=== PATIENT | female | born 1995 | race Caucasian/White ===

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

== ENCOUNTER 2017-01-31 20:47 | Emergency (ER) | payer OTHER ==
[~2017-01-31] VITALS: Ht 170.2 cm; Wt 90.9 kg
[~2017-01-31 20:47] MED LIST changes: +BACT800T5 PO; +ROZE8TAB19 PO; -ROZE8TAB8 PO; +VIST25CA PO
[2017-01-31 20:58] VITALS: BP 147/76; PULSE 73; RESP 16; TEMP 98.1; O2SAT 100
[2017-01-31 23:35] VITALS: BP 138/72; PULSE 68; RESP 16; O2SAT 99
[2017-01-31 23:56] LABS: BLOOD, URINE NEG (NEG); GLUCOSE,URINE NEG (NEG); KETONE, URINE TRACE mg/dL (NEG); NITRITE,URINE NEG (NEG)
[2017-02-01] LABS: URINE COLOR YELLOW (YELLW/STRAW)
[2017-02-01 00:01] LABS: BACTERIA, URINE MOD /hpf; COMMENT (UR) CULTURE INDICATED; CULTURE IF INDICATED CULTURE INDICATED; RBC, URINE 0-2 /hpf (0-3); SQUAMOUS EPITHELIAL CELL URINE > 8 /hpf (0-5)
[2017-02-01] MEDS ORDERED: MACR100C2 PO (00:26)
--- NOTE | 2017-02-01 00:29 | PD ---
HPI Chief Complaint: Dizziness Time Seen by Provider: 00:23 Travel History International Travel<30 days: No Contact w/Intl Traveler<30days: No Traveled to known affect area: No History of Present Illness HPI 21 year-old female presents for dizziness dysuria frequency urgency and nausea. Patient has had subjective fever no chills. Patient's had mild sore throat but none at this time. Patient denies sinus pressure drainage. Nonproductive cough. Patient has had urinary frequency urgency dysuria and no hematuria. Patient denies . Patient is on control pills and last period was normal for her. Patient does not smoke cigarettes. No lower extremity pain or swelling. Pain with urination as 2-5/10 in intensity. Patient denies any vaginal discharge or abnormal vaginal bleeding. Patient's had no injury or fall. PFSH Past Medical History Narrative Medical Anxiety depression hypothyroidism no surgery; nursing notes reviewed Anxiety: Yes Depression: Yes Diminished Hearing: No Insomnia: Yes Respiratory: Yes (FREQUENT SINUS INFECTIONS) Integumentary: Yes (ACNE) Immunizations Current: Yes Thyroid Disease: Yes ?: Not : 0 Social History Alcohol Use: No Tobacco Use: No Substance Use: No Allergies-Medications (Allergen,Severity, Reaction): Coded Allergies: amoxicillin (Unverified Allergy, Severe, RASH, 01/31/17) azithromycin (Unverified Allergy, Severe, RASH, 01/31/17) Reported Meds & Prescriptions Reported Meds & Active Scripts Active Macrobid (Nitrofurantoin Monoh/Nitrofur Macro) 100 Mg Cap 100 Mg PO BID 10 Days Reported Xanax (Alprazolam) 1 Mg Tab 1 Mg PO Q8H PRN Valtrex (Valacyclovir HCl) 1 Gm Tab 2,000 Mg PO DAILY Rozerem (Ramelteon) 8 Mg Tab 8 Mg PO DAILY Levothyroxine (Levothyroxine Sodium) 25 Mcg Tab 25 Mcg PO DAILY Spironolactone 50 Mg Tab 50 Mg PO DAILY Ortho Tri-Cyclen (Norgestimate-Ethinyl Estradiol) 0.18/0.215/0.25 mg-35 Mcg Tab 1 Tab PO DAILY Belviq (Lorcaserin) 10 Mg Tab 10 Mg PO BID Doxycycline Hyclate 50 Mg Cap 50 Mg PO DAILY Tylenol-Codeine #3 (Acetaminophen-Codeine) 300-30 mg Tab 1-2 Tab PO Q6H PRN Ambien (Zolpidem Tartrate) 10 Mg Tab 10 Mg PO HS PRN Review of Systems Except as stated in HPI: all other systems reviewed are Neg General / Constitutional: No: Fever HENT: No: Congestion Cardiovascular: No: Chest Pain or Discomfort Respiratory: No: Shortness of Breath Gastrointestinal: No: Abdominal Pain Genitourinary: Positive: Urgency, Frequency, Dysuria, No: Flank Pain Musculoskeletal: No: Myalgias, Arthralgias Skin: No Rash Neurologic: No: Weakness, Dizziness, Syncope, Focal Abnormalities, Coordination Problem Psychiatric: No: Anxiety Hematologic/Lymphatic: No: Lymph Node Enlargement Physical Exam Narrative GENERAL: Well-developed well-nourished female in no acute distress no respiratory distress SKIN: Warm and dry. HEAD: Normocephalic. EYES: No scleral icterus. No injection or drainage. NECK: Supple, trachea midline. No JVD or lymphadenopathy. CARDIOVASCULAR: Regular rate and rhythm without murmurs, gallops, or rubs. RESPIRATORY: Breath sounds equal bilaterally. No accessory muscle use. GASTROINTESTINAL: Abdomen soft, non-tender, nondistended. MUSCULOSKELETAL: No cyanosis, or edema. BACK: Nontender without obvious deformity. No CVA tenderness. Data Data Last Documented VS Vital Signs Date Time Temp Pulse Resp B/P (MAP) Pulse Ox O2 Delivery O2 Flow Rate FiO2 02/01/17 00:41 84 16 122/77 (92) 99 01/31/17 23:35 Room Air 01/31/17 20:58 98.1 Orders Orders Ed Urine Pregnancytest Poc (01/31/17 23:48) Urinalysis - C+S If Indicated (01/31/17 23:48) Urine Culture (01/31/17 23:50) Ed Discharge Order (02/01/17 00:23) Nitrofurantoin Monohyd Macrocr (Macrobid (02/01/17 00:30) Labs Laboratory Tests Test 01/31/17 23:50 Urine Color YELLOW Urine Turbidity CLOUDY Urine pH 6.0 Urine Specific [place] 1.025 Urine Protein TRACE mg/dL Urine Glucose (UA) NEG mg/dL Urine Ketones TRACE mg/dL Urine Occult Blood NEG Urine Nitrite NEG Urine Bilirubin NEG Urine Leukocyte Esterase SMALL Urine RBC 0-2 /hpf Urine WBC 9-14 /hpf Urine Squamous Epithelial Cells > 8 /hpf Urine Bacteria MOD /hpf Urine Yeast with Hyphae FEW Urine Yeast (Budding) FEW Microscopic Urinalysis Comment CULTURE INDICATED MDM Medical Decision Making Medical Screen Exam Complete: Yes Emergency Medical Condition: Yes Medical Record Reviewed: Yes Interpretation(s) poc hcg:negative ua: bacteria wbc's leuk est; cx indicated Differential Diagnosis uti, , viral syndrome Narrative Course urine specimen collected UA abnormal --macrobid administered --patient is stable for outpatient management Patient requests work excuse. Diagnosis Primary Impression: UTI (urinary tract infection) Referrals: Primary Care Physician 2 days Patient Instructions: General Instructions Med/Other Pt SpecificInfo: Prescription(s) given Scripts Nitrofurantoin Monohydrate Macrocrystals (Macrobid) 100 Mg Cap 100 MG PO BID for Infection for 10 Days, #20 CAP 0 Refills Prov: Tanna Hernandez MD 02/01/17 Disposition: 01 DISCHARGE HOME Condition: Stable Tanna Hernandez MD Feb 01, 2017 00:29
[2017-02-01] MEDS ORDERED: NITROFURANTOIN MONOHYD MACROCR 100 MG CAP PO ONE (00:30)
[2017-02-01 00:41] VITALS: BP 122/77
== END 2017-02-01 00:42 | disposition home or self-care (01) ==
LOC: PHED 20:47
DX: N39.0 Urinary tract infection, site not specified (principal); R11.0 Nausea; R50.9 Fever, unspecified; R07.0 Pain in throat; R05 Cough; E03.9 Hypothyroidism, unspecified; Z86.59 Personal history of other mental and behavioral disorders; Z87.2 Personal history of diseases of the skin and subcutaneous tissue
CPT/HCPCS: 81001; 84703; 87086; 99283

== ENCOUNTER 2017-04-14 19:53 | Emergency (ER) | payer OTHER ==
[~2017-04-14 19:53] MED LIST changes: -BACT800T5 PO; +MACR100C2 PO; -VIST25CA PO
[2017-04-14 20:25] VITALS: BP 159/89; PULSE 77; RESP 20; TEMP 97.8; O2SAT 98
[2017-04-14 20:48] LABS: BILIRUBIN, URINE NEG (NEG); BLOOD, URINE NEG (NEG); GLUCOSE,URINE NEG (NEG); KETONE, URINE TRACE mg/dL (NEG); NITRITE,URINE NEG (NEG); URINE LEUKOCYTE ESTERASE TRACE (NEG)
[2017-04-14 21:11] LABS: SQUAMOUS EPITHELIAL CELL URINE 0-5 /hpf (0-5); URINE COLOR YELLOW (YELLW/STRAW)
[2017-04-14] MEDS ORDERED: DIPH25CA PO (22:12)
[2017-04-14] MEDS ORDERED: ADVI200T17 PO (22:12)
[2017-04-14] MEDS ORDERED: BIOTCAP PO (22:12)
--- NOTE | 2017-04-14 22:22 | PD ---
HPI Chief Complaint: General Weakness Time Seen by Provider: 22:11 Travel History International Travel<30 days: No Contact w/Intl Traveler<30days: No Traveled to known affect area: No History of Present Illness HPI 21yo F presents to the ED with c/o generalized fatigue and dizziness. Said she had blood work by PMD 4-5 days ago and her wbc count was high and was told to come to the ED to see if she is anemic. Denies any fever, cough, chest pain, sob, n/v, abdominal pain, focal weakness or numbness. PFSH Past Medical History Anxiety: Yes Depression: Yes Diminished Hearing: No Insomnia: Yes Respiratory: Yes (FREQUENT SINUS INFECTIONS) Integumentary: Yes (ACNE) Immunizations Current: Yes Thyroid Disease: Yes Tetanus Vaccination: Unknown ?: Not LMP: 2 DAYS AGO : 0 Past Surgical History Surgical History: No Previous Surgery Social History Alcohol Use: No Tobacco Use: No Substance Use: No Allergies-Medications (Allergen,Severity, Reaction): Coded Allergies: amoxicillin (Unverified Allergy, Severe, RASH, 01/31/17) azithromycin (Unverified Allergy, Severe, RASH, 01/31/17) Reported Meds & Prescriptions Reported Meds & Active Scripts Active Reported Diphenhydramine (Diphenhydramine HCl) 25 Mg Cap 150 Mg PO HS PRN Advil Pm (Ibuprofen-Diphenhydramine) 200-38 Mg Tab 1 Tab PO HS PRN Biotin 5 Mg Cap 5 Mg PO DAILY Xanax (Alprazolam) 1 Mg Tab 1 Mg PO Q8H PRN Valtrex (Valacyclovir HCl) 1 Gm Tab 2,000 Mg PO DAILY Rozerem (Ramelteon) 8 Mg Tab 8 Mg PO DAILY Levothyroxine (Levothyroxine Sodium) 25 Mcg Tab 25 Mcg PO DAILY Spironolactone 50 Mg Tab 50 Mg PO DAILY Ortho Tri-Cyclen (Norgestimate-Ethinyl Estradiol) 0.18/0.215/0.25 mg-35 Mcg Tab 1 Tab PO DAILY Belviq (Lorcaserin) 10 Mg Tab 10 Mg PO BID Doxycycline Hyclate 50 Mg Cap 50 Mg PO DAILY Ambien (Zolpidem Tartrate) 10 Mg Tab 10 Mg PO HS PRN Review of Systems Except as stated in HPI: all other systems reviewed are Neg Physical Exam Narrative GENERAL: 21yo F not in distress. SKIN: Focused skin assessment warm/dry. HEAD: Atraumatic. Normocephalic. EYES: Pupils equal and round at 4mm bilaterally. EOMI. ENT: No nasal bleeding or discharge. Mucous membranes pink and moist. NECK: Trachea midline. No JVD. CARDIOVASCULAR: Regular rate and rhythm. No murmur appreciated. RESPIRATORY: No accessory muscle use. Clear to auscultation. Breath sounds equal bilaterally. GASTROINTESTINAL: Abdomen soft, non-tender, nondistended. RECTAL: Refused. MUSCULOSKELETAL: No obvious deformities. No clubbing. No cyanosis. No edema. NEUROLOGICAL: Awake and alert. No obvious cranial nerve deficits. Motor grossly within normal limits. Normal speech. Data Data Last Documented VS Vital Signs Date Time Temp Pulse Resp B/P (MAP) Pulse Ox O2 Delivery O2 Flow Rate FiO2 04/14/17 22:13 74 18 98 04/14/17 20:25 97.8 159/89 (112) Orders Orders Urinalysis - C+S If Indicated (04/14/17 20:29) Ed Urine Pregnancytest Poc (04/14/17 20:29) Complete Blood Count With Diff (04/14/17 22:19) Basic Metabolic Panel (Bmp) (04/14/17 22:19) Thyroid Stimulating Hormone (04/14/17 22:19) Magnesium (Mg) (04/14/17 22:19) Electrocardiogram (04/14/17 ) Orthostatic Blood Pressure (04/14/17 22:22) Ed Discharge Order (04/14/17 23:54) Labs Laboratory Tests Test 04/14/17 20:40 04/14/17 22:40 Urine Color YELLOW Urine Turbidity CLEAR Urine pH 6.0 Urine Specific [place] 1.032 Urine Protein TRACE mg/dL Urine Glucose (UA) NEG mg/dL Urine Ketones TRACE mg/dL Urine Occult Blood NEG Urine Nitrite NEG Urine Bilirubin NEG Urine Leukocyte Esterase TRACE Urine WBC 3-5 /hpf Urine Squamous Epithelial Cells 0-5 /hpf Microscopic Urinalysis Comment CULT NOT INDICATED White Blood Count 8.8 TH/MM3 Red Blood Count 4.30 MIL/MM3 Hemoglobin 10.0 GM/DL Hematocrit 31.8 % Mean Corpuscular Volume 73.9 FL Mean Corpuscular Hemoglobin 23.2 PG Mean Corpuscular Hemoglobin Concent 31.3 % Red Cell Distribution Width 14.9 % Platelet Count 533 TH/MM3 Mean Platelet Volume 7.6 FL Neutrophils (%) (Auto) 46.6 % Lymphocytes (%) (Auto) 39.8 % Monocytes (%) (Auto) 8.2 % Eosinophils (%) (Auto) 4.7 % Basophils (%) (Auto) 0.7 % Neutrophils # (Auto) 4.1 TH/MM3 Lymphocytes # (Auto) 3.5 TH/MM3 Monocytes # (Auto) 0.7 TH/MM3 Eosinophils # (Auto) 0.4 TH/MM3 Basophils # (Auto) 0.1 TH/MM3 CBC Comment AUTO DIFF Blood Urea Nitrogen 15 MG/DL Creatinine 0.67 MG/DL Random Glucose 91 MG/DL Calcium Level 9.3 MG/DL Magnesium Level 2.1 MG/DL Sodium Level 138 MEQ/L Potassium Level 4.0 MEQ/L Chloride Level 103 MEQ/L Carbon Dioxide Level 28.1 MEQ/L Anion Gap 7 MEQ/L Estimat Glomerular Filtration Rate 113 ML/MIN Thyroid Stimulating Hormone 3rd Gen 1.530 uIU/ML [facility] Medical Decision Making Medical Screen Exam Complete: Yes Emergency Medical Condition: Yes Interpretation(s) EKG: NSR 69bpm. Normal axis. No ST segment elevation or depression. Differential Diagnosis Anemia vs. anxiety vs. arrhythmia vs. hypothyroidism Narrative Course 21yo F here with c/o generalized fatigue for a few days. Sent by PMD to see if she has anemia. Labs reviewed, no leukocytosis. H/H low at 10/31.8. Last H/H in 11/2016 was 12/36. Pt denies any blood in stool or black stool. Refused rectal. Platelet count elevated at 533. TSH normal. BMP normal. UA showed WBC 3-5. Culture not indicated. Urine negative. Vital sign within normal limits. Pt reassured and instructed to follow up PMD for further work up of anemia. Return precautions given. Diagnosis Primary Impression: Anemia Qualified Codes: D64.9 - Anemia, unspecified Patient Instructions: General Instructions Departure Forms: Tests/Procedures Additional Instructions: Your hemoglobin was 10.0 today. Please follow up with your primary care physician for further evaluation of the anemia. Return to the ED if symptoms worsen. Med/Other Pt SpecificInfo: No Change to Meds Disposition: 01 DISCHARGE HOME Condition: Stable Marimar Mcconnell Apr 14, 2017 22:22
[2017-04-14 22:50] VITALS: BP 162/83; PULSE 76; RESP 18; O2SAT 100
[2017-04-14 23:04] LABS: AUTOMATED NEUTROPHIL # 4.1 TH/MM3 (1.8-7.7); BASOPHIL # 0.1 TH/MM3 (0-0.2); BASOPHIL % 0.7 % (0.0-2.0); EOSINOPHIL # 0.4 TH/MM3 (0-0.4); EOSINOPHIL % 4.7 % (0.0-4.0); HEMATOCRIT 31.8 % (35.0-46.0); LYMPH % 39.8 % (9.0-44.0); LYMPHOCYTE # 3.5 TH/MM3 (1.0-4.8); MEAN CELL VOLUME 73.9 FL (80.0-100.0); MEAN CORPUSCULAR HEMOGLOBIN 23.2 PG (27.0-34.0); MEAN CORPUSCULAR HGB CONC 31.3 % (32.0-36.0); MEAN PLATELET VOLUME 7.6 FL (7.0-11.0); MONO % 8.2 % (0.0-8.0); MONOCYTE # 0.7 TH/MM3 (0-0.9); NEUT % 46.6 % (16.0-70.0); PLATELET COUNT 533 TH/MM3 (150-450); RED CELL DISTRIBUTION WIDTH 14.9 % (11.6-17.2); WHITE BLOOD COUNT 8.8 TH/MM3 (4.0-11.0)
[2017-04-14 23:14] LABS: CALCIUM 9.3 MG/DL (8.5-10.1)
[2017-04-14 23:15] LABS: BICARBONATE 28.1 MEQ/L (21.0-32.0); MAGNESIUM 2.1 MG/DL (1.5-2.5)
[2017-04-14 23:18] LABS: CREATININE 0.67 MG/DL (0.50-1.00)
[2017-04-14 23:50] VITALS: BP 147/89; PULSE 74; RESP 16; O2SAT 98
[2017-04-15 00:45] VITALS: BP 157/92; PULSE 78; RESP 16; O2SAT 99
--- NOTE | 2017-04-15 12:14 | EKG ---
Date Performed: 04/14/2017 Time Performed: 22:36:44 PTAGE: 21 years EKG: Sinus rhythm NORMAL ECG PREVIOUS TRACING : 07/29/2016 13.11 Since the prior tracing, there has been no significant edward ge DOCTOR: Ryan Perla Interpretating Date/Time 04/15/2017 12:13:23
== END 2017-04-15 01:05 | disposition home or self-care (01) ==
LOC: PHED 19:53
DX: D64.9 Anemia, unspecified (principal); E07.9 Disorder of thyroid, unspecified; G47.00 Insomnia, unspecified; Z79.899 Other long term (current) drug therapy
CPT/HCPCS: 80048; 81001; 83735; 84443; 84703; 85025; 93005; 99284

== ENCOUNTER 2017-09-07 23:51 | Emergency (ER) | payer OTHER ==
[~2017-09-07] VITALS: Ht 172.7 cm; Wt 95.9 kg
[~2017-09-07 23:51] MED LIST changes: +ADVI200T17 PO; +BIOTCAP PO; +DIPH25CA PO; -MACR100C2 PO; -TYLETAB34 PO
[2017-09-07 23:55] VITALS: BP 165/93; PULSE 98; RESP 18; TEMP 98.4; O2SAT 98
--- NOTE | 2017-09-08 00:09 | PD ---
HPI Chief Complaint: Canvas Baster Problem/Complaint Time Seen by Provider: 00:07 Travel History International Travel<30 days: No Contact w/Intl Traveler<30days: No Traveled to known affect area: No History of Present Illness HPI 22-year-old female presents to the emergency department for complaint of vaginal discharge and burning with itching consistent with prior yeast infections. Patient states she has used topical medication without relief. Patient states that she typically requires a prescription for Diflucan. Patient called her hay stacker operator but was unable to successfully reach her provider and presents now for evaluation. Patient states that she has been traveling and just arrived back into the [facility] this evening and [place] from [place] to the hospital because she saw comfortable. Patient states she is taking doxycycline for acne control is on control pills and denies . Patient does not note any malodorous discharge. Patient has irritation associated with urination consistent with the irritation associated with yeast vaginosis. Patient is unable to identify relieving factors. Discomfort is moderate to severe. PFSH Past Medical History Narrative Medical Anxiety depression, yeast infection, UTI, thyroid disease; nursing notes reviewed Anxiety: Yes Depression: Yes Diminished Hearing: No Genitourinary: Yes (FREQUENT UTI'S) Insomnia: Yes Respiratory: Yes (FREQUENT SINUS INFECTIONS) Integumentary: Yes (ACNE) Immunizations Current: Yes Thyroid Disease: Yes : 0 Social History Alcohol Use: No Tobacco Use: No Substance Use: No Allergies-Medications (Allergen,Severity, Reaction): Coded Allergies: amoxicillin (Unverified Allergy, Severe, RASH, 01/31/17) azithromycin (Unverified Allergy, Severe, RASH, 01/31/17) Reported Meds & Prescriptions Reported Meds & Active Scripts Active Reported Diphenhydramine (Diphenhydramine HCl) 25 Mg Cap 150 Mg PO HS PRN Advil Pm (Ibuprofen-Diphenhydramine) 200-38 Mg Tab 1 Tab PO HS PRN Biotin 5 Mg Cap 5 Mg PO DAILY Xanax (Alprazolam) 1 Mg Tab 1 Mg PO Q8H PRN Valtrex (Valacyclovir HCl) 1 Gm Tab 2,000 Mg PO DAILY Rozerem (Ramelteon) 8 Mg Tab 8 Mg PO DAILY Levothyroxine (Levothyroxine Sodium) 25 Mcg Tab 25 Mcg PO DAILY Spironolactone 50 Mg Tab 50 Mg PO DAILY Ortho Tri-Cyclen (Norgestimate-Ethinyl Estradiol) 0.18/0.215/0.25 mg-35 Mcg Tab 1 Tab PO DAILY Belviq (Lorcaserin) 10 Mg Tab 10 Mg PO BID Doxycycline Hyclate 50 Mg Cap 50 Mg PO DAILY Ambien (Zolpidem Tartrate) 10 Mg Tab 10 Mg PO HS PRN Review of Systems Except as stated in HPI: all other systems reviewed are Neg Physical Exam Narrative GENERAL: Well-developed well-nourished female no acute distress or respiratory distress SKIN: Warm and dry. HEAD: Normocephalic. EYES: No scleral icterus. No injection or drainage. NECK: Supple, trachea midline. No JVD or lymphadenopathy. CARDIOVASCULAR: Regular rate and rhythm without murmurs, gallops, or rubs. RESPIRATORY: Breath sounds equal bilaterally. No accessory muscle use. GASTROINTESTINAL: Abdomen soft, non-tender, nondistended. Pelvic: MUSCULOSKELETAL: No cyanosis, or edema. BACK: Nontender without obvious deformity. No CVA tenderness. Data Data Last Documented VS Vital Signs Date Time Temp Pulse Resp B/P (MAP) Pulse Ox O2 Delivery O2 Flow Rate FiO2 09/07/17 23:55 98.4 98 18 165/93 (117) 98 Orders Orders Wet Prep Profile (09/08/17 00:09) Urinalysis - C+S If Indicated (09/08/17 00:09) Ed Urine Pregnancytest Poc (09/08/17 00:09) Gc And Chlamydia Pcr (09/08/17 00:24) Labs Laboratory Tests Test 09/08/17 00:20 09/08/17 00:35 Urine Color YELLOW Urine Turbidity CLEAR Urine pH 5.5 Urine Specific [place] GREATER/EQUAL 1.030 Urine Protein TRACE mg/dL Urine Glucose (UA) NEG mg/dL Urine Ketones NEG mg/dL Urine Occult Blood NEG Urine Nitrite NEG Urine Bilirubin NEG Urine Urobilinogen 0.2 MG/DL Urine Leukocyte Esterase NEG Urine RBC 0-2 /hpf Urine WBC 3-5 /hpf Urine Squamous Epithelial Cells 6-8 /hpf Urine Bacteria NONE /hpf Microscopic Urinalysis Comment CULT NOT INDICATED Clue Cells (Wet Prep) NONE SEEN Vaginal Trichomonas (Wet Prep) NONE SEEN Vaginal Yeast (Wet Prep) NONE SEEN MDM Medical Decision Making Medical Screen Exam Complete: Yes Emergency Medical Condition: Yes Medical Record Reviewed: Yes Interpretation(s) UA: cx not indicated wet prep: negative poc ppreg: negative Differential Diagnosis Yeast vaginosis, bacterial vaginitis, UTI, Narrative Course Specimens collected and sent for resulting [id number] test is negative Wet prep is negative and urinalysis cultures not indicated due to greater than 6 -8 squamous epithelial cells on urine collection Patient presents clinically with bacterial vaginosis we will treat presumptively for this condition with MetroGel-Vaginal patient requesting oral dose of Flagyl in the emergency department as no access to prescription medication at this time; due to history of recurrence of yeast infections while on antibiotic will give patient a prescription for a one-time dose of Diflucan 150; patient is encouraged to follow-up with her hay stacker operator as previously planned. Diagnosis Primary Impression: Bacterial vaginosis Referrals: Sheetmetal Worker call for appointment Patient Instructions: General Instructions Additional Instructions: Increase fluid hydration Take medication as prescribed Follow-up with your primary care provider/hay stacker operator Return to the emergency department for any concerns or change in condition Med/Other Pt SpecificInfo: Prescription(s) given Scripts Fluconazole (Diflucan) 150 Mg Tab 150 MG PO ONCE for Infection, #1 TAB 0 Refills Prov: Tanna Hernandez MD 09/08/17 Metronidazole Vaginal Gel (Metrogel Vaginal Gel) 0.75 % Gel 1 APPL VAGINAL HS for Infection for 5 Days, #1 TUBE 0 Refills Prov: Tanna Hernandez MD 09/08/17 Disposition: 01 DISCHARGE HOME Condition: Stable Tanna Hernandez MD Sep 08, 2017 00:09
[2017-09-08 00:49] LABS: BILIRUBIN, URINE NEG (NEG); BLOOD, URINE NEG (NEG); GLUCOSE,URINE NEG (NEG); KETONE, URINE NEG (NEG); NITRITE,URINE NEG (NEG); PH, URINE 5.5 (5.0-8.5); URINE COLOR YELLOW (YELLW/STRAW); URINE LEUKOCYTE ESTERASE NEG (NEG)
[2017-09-08 00:54] LABS: RBC, URINE 0-2 /hpf (0-3)
[2017-09-08] MEDS ORDERED: DIFL150T PO (01:37)
[2017-09-08] MEDS ORDERED: METR0.7528 VAGINAL (01:37)
[2017-09-08] MEDS ORDERED: metroNIDAZOLE 500 MG TAB PO ONE (01:45)
[2017-09-08 01:50] VITALS: BP 179/83
== END 2017-09-08 01:57 | disposition home or self-care (01) ==
LOC: PHED 23:51
DX: N76.0 Acute vaginitis (principal); B96.89 Other specified bacterial agents as the cause of diseases classified elsewhere; Z88.0 Allergy status to penicillin
CPT/HCPCS: 81001; 84703; 87210; 87491; 87591; 99283